=== PATIENT | female | born 1985 | race Caucasian/White ===

== ENCOUNTER 2021-11-06 18:47 | Inpatient (IN) | payer BC, SELFPAY ==
[2021-11-06] VITALS (11 sets, daily range): BP systolic 111–132; BP diastolic 71–85; PULSE 89–97; BMI 38.5
--- OUTSIDE RECORDS SUMMARY | 2021-11-06 18:54 | XMS_ITS | Encounter Summary ---
:1985 Author Care Team Providers Name Role Phone Adams Luna Primary Care Provider [phone] Reason for Visit OB visit Assessment and Plan 1. Elderly primigravida 2. -induced hypertensio n Discussion Note: None recorded.Patient educational handouts: No information available. Plan of Care Reminders Provider Appointments Nst Nst, , EQ UIP 11/13/2021 3:30PM ? U/S OB BPP Ultras ound, TECH 11/13/2021 4:00PM ? Ob Routine Lucila Th erese 11/13/2021 MD Louis 5:15PM Lab None ? ? recorded. Referral None ? ? recorded. Procedures None ? ? recorded. Surgeries None ? ? recorded. Imaging None ? ? recorded. Medications Name Start Date ? ? cephalexin 500 mg capsule ? Take 1 capsule 3 times a day by oral route for 7 days . omeprazole 40 mg capsule,delayed release ? Take 1 capsule every day by oral route. ondansetron 4 mg disintegrating tablet ? Place 1 tablet twice a day by translingual route as n eeded. ? Medications Administered None recorded. Vitals Height
--- OUTSIDE RECORDS SUMMARY | 2021-11-06 18:54 | XMS_ITS | Encounter Summary ---
:1985 Author Care Team Providers Name Role Phone Adams Luna Primary Care Provider [phone] Reason for Visit NST [id number] EDC 11/09/2021 LMP 02/02/2021 Assessment and Plan 1. Maternal obesity complicating , childbirth and the puerperium, antepartum ? non-stress test Discussion Note: None recorded.Patient educational handouts: No information available. Plan of Care Reminders Provider Appointments Nst Nst, , EQ UIP 11/13/2021 3:30PM ? U/S OB BPP Ultras ound, TECH 11/13/2021 4:00PM ? Ob Routine Lucila Th erese 11/13/2021 MD Louis 5:15PM Lab None ? ? recorded. Referral None ? ? recorded. Procedures None ? ? recorded. Surgeries None ? ? recorded. Imaging Non-stress [place] Test 10/30/2021 Medications Name Start Date ? ? cephalexin 500 mg capsule ? Take 1 capsule 3 times a day by oral route for 7 days . omeprazole 40 mg capsule,delayed release ? Take 1 capsule every day by oral route. ondansetron 4 mg disintegrating tablet ? Place 1 tablet twice a day b
--- OUTSIDE RECORDS SUMMARY | 2021-11-06 18:54 | XMS_ITS | Encounter Summary ---
:1985 Author Care Team Providers Name Role Phone Adams Luna Primary Care Provider [phone] Reason for Visit None recorded. Assessment and Plan 1. Maternal obesity complicating , childbirth and the puerperium, antepartum ? US, obstetric, biophysical profile + non-stress test Discussion Note: None recorded.Patient educational handouts: No information available. Plan of Care Reminders Provider Appointments Nst Nst, , EQ UIP 11/13/2021 3:30PM ? U/S OB BPP Ultras ound, TECH 11/13/2021 4:00PM ? Ob Routine Lucila Th erese 11/13/2021 MD Louis 5:15PM Lab None recorded. ? ? Referral None recorded. ? ? Procedures None recorded. ? ? Surgeries None recorded. ? ? Imaging US, Obstetric, [facility] Biophysical Profile + 11/06/2021 Non-stress Test Medications Name Start Date ? ? cephalexin 500 mg capsule ? Take 1 capsule 3 times a day by oral route for 7 days . omeprazole 40 mg capsule,delayed release ? Take 1 capsule every day by oral route. ondansetron 4 mg disintegrating tablet ?
--- OUTSIDE RECORDS SUMMARY | 2021-11-06 18:54 | XMS_ITS ---
:1985 Author Care Team Providers Name Role Phone FLOYD CADE Primary Care Provider [phone] Allergies Code Code System Name Reaction Severity Status Onset NKDA ? Medications Name Status Start Date Stop Date ? ? amitriptyline 25 mg tablet Completed 06/05/201706/05 take 1 tablet by oral route every day at bedtime amitriptyline 50 mg tablet Completed 06/05/201703/16 take 1 tablet by oral route every day at bedtime cephalexin 500 mg capsule Active ? Not av ailable Diflucan 150 mg tablet Completed 12/16/2015 take 1 tablet by oral route once erythromycin with ethanol 2 % topical solution Completed 0 05/20/2014 06/05/2017 apply by topical route 2 times every da y a thin layer to the affected area(s) in the morning and evening Lysteda 650 mg tablet Completed 12/05/2015 06/05/2017 take 2 tablet by oral route 3 times every day during menses Vandazole 0.75 % vaginal gel Active ? Not available omeprazole Completed ? 05/08/2021 omeprazole 40 mg Active ? Not available capsule,delayed release ondansetron 4 mg Active ? Not available disintegrating tablet ParaGard T 380A 380 square mm Active 03/16/2019 No t available intrauterine device Active ? Not available Tri-Sprintec (28) 0.18 mg(7)/0.215 mg(7)/0.25 mg(7)-35 mcg table t Completed ? 03/28/2021 TAKE 1 TABLET BY MOUTH EVERY DAY Problems Name Status Onset Date Source ?
--- OUTSIDE RECORDS SUMMARY | 2021-11-06 18:54 | XMS_ITS | Encounter Summary ---
:1985 Author Care Team Providers Name Role Phone Adams Luna Primary Care Provider [phone] Reason for Visit OB visit Assessment and Plan 1. Elderly primigravida 2. Maternal obesity complicating , childbirth and the puerperium, antepartum Discussion Note: None recorded.Patient educational handouts: No [...] by translingual route as n eeded. ? Med
--- OUTSIDE RECORDS SUMMARY | 2021-11-06 18:54 | XMS_ITS | Encounter Summary ---
:1985 Author Care Team Providers Name Role Phone Adams Luna Primary Care Provider [phone] Reason for Visit None recorded. Assessment and Plan 1. Maternal obesity complicating , childbirth and the puerperium, antepartum ? US, obstetric, follow-up Discussion Note: None recorded.Patient educational handouts: No information available. Plan of Care Reminders Provider Appointments Nst Nst, , EQ UIP 11/13/2021 3:30PM ? U/S OB BPP Ultras ound, TECH 11/13/2021 4:00PM ? Ob Routine Ulcila Th erese 11/13/2021 MD Louis 5:15PM Lab None ? ? recorded. Referral None ? ? recorded. Procedures None ? ? recorded. Surgeries None ? ? recorded. Imaging , [place] Obstetric, Follow-up 10/23/2021 Medications Name Start Date ? ? cephalexin 500 mg capsule ? Take 1 capsule 3 times a day by oral route for 7 days . omeprazole 40 mg capsule,delayed release ? Take 1 capsule every day by oral route. ondansetron 4 mg disintegrating tablet ? Place 1 tablet twice a day by translingual rout
--- OUTSIDE RECORDS SUMMARY | 2021-11-06 18:54 | XMS_ITS | Encounter Summary ---
:1985 Author Care Team Providers Name Role Phone Adams Luna Primary Care Provider [phone] Reason for Visit OB visit Assessment and Plan 1. Elderly primigravida 2. Maternal obesity complicating , childbirth and the puerperium, antepartum Discussion Note: None recorded.Patient educational handouts: No information available. Plan of Care Reminders Provider Appointments Nst Nst, , EQ UIP 11/13/2021 3:30PM ? U/S OB BPP Ultras ound TECH 11/13/2021 4:00PM ? Ob Routine Lucila [...]
--- OUTSIDE RECORDS SUMMARY | 2021-11-06 18:54 | XMS_ITS | Encounter Summary ---
:1985 Author Care Team Providers Name Role Phone Adams Luna Primary Care Provider [phone] Reason for Visit OB visit Assessment and Plan 1. Elderly primigravida 2. Maternal obesity complicating , childbirth and the puerperium, antepartum 3. Elevated blood-pressure readi ng without diagnosis of hypertension Discussion Note: None recorded.Patient educational handouts: No information available. Plan of Care Reminders Provider Appointments Nst Nst, , EQ UIP 11/13/2021 3:30PM ? U/S OB BPP Ultras ound, TECH 11/13/2021 4:00PM ? Ob Routine Lucila Gen osacr 11/13/2021 MD Louis 5:15PM Lab None ? [...] mg disintegrating tablet ? Place 1 tablet t
--- OUTSIDE RECORDS SUMMARY | 2021-11-06 18:54 | XMS_ITS | Encounter Summary ---
:1985 Author Care Team Providers Name Role Phone Adams Luna Primary Care Provider [phone] Reason for Visit OB visit Assessment and Plan 1. Routine care 2. Elderly primigravida 3. Maternal obesity complicating , childbirth and the [...]
--- OUTSIDE RECORDS SUMMARY | 2021-11-06 18:54 | XMS_ITS | Encounter Summary ---
:1985 Author Care Team Providers Name Role Phone Adams Luna Primary Care Provider [phone] Reason for Visit OB visit Assessment and [...]
--- OUTSIDE RECORDS SUMMARY | 2021-11-06 18:54 | XMS_ITS | Encounter Summary ---
:1985 Author Care Team Providers Name Role Phone Adams Luna Primary Care Provider [phone] Reason for Visit None recorded. Assessment and [...] None recorded. ? ? Imaging US, Obstetric, [facility] Biophysical Profile + 10/30/2021 Non-stress Test Medications Name Start Date ? ? cephalexin 500 mg capsule ? Take 1 capsule 3 times a day by oral route for 7 days . omeprazole 40 mg capsule,delayed release ? Take 1 capsule every day by oral route. ondansetron 4 mg disintegrating tablet ?
--- OUTSIDE RECORDS SUMMARY | 2021-11-06 18:54 | XMS_ITS | Encounter Summary ---
:1985 Author Care Team Providers Name Role Phone Adams Luna Primary Care Provider [phone] Reason for Visit None recorded. Assessment and [...] ? recorded. Imaging Non-stress [place] Test 10/23/2021 Medications Name Start Date ? ? cephalexin 500 mg capsule ? Take 1 capsule 3 times a day by oral route for 7 days . omeprazole 40 mg capsule,delayed release ? Take 1 capsule every day by oral route. ondansetron 4 mg disintegrating tablet ? Place 1 tablet twice a day by translingual route as
--- OUTSIDE RECORDS SUMMARY | 2021-11-06 18:54 | XMS_ITS | Encounter Summary ---
:1985 Author Care Team Providers Name Role Phone Adams Luna Primary Care Provider [phone] Reason for Visit NST [id number] EDC 11/09/2021 LMP 02/02/2021 Assessment and Plan [...] ? recorded. Imaging Non-stress [place] Test 11/06/2021 Medications Name Start Date ? ? cephalexin 500 mg capsule ? Take 1 capsule 3 times a day by oral route for 7 days . omeprazole 40 mg capsule,delayed release ? Take 1 capsule every day by oral route. ondansetron 4 mg disintegrating tablet ? Place 1 tablet twice a day
--- OUTSIDE RECORDS SUMMARY | 2021-11-06 18:55 | XMS_ITS | Encounter Summary ---
:1985 Author Care Team Providers Name Role Phone Adams Luna Primary Care Provider [phone] Reason for Visit None recorded. Assessment and Plan 1. screening ? US, obstetric, follow-up Discussion Note: None [...] recorded. Surgeries None ? ? recorded. Imaging [facility] Obstetric, Follow-up 08/22/2021 Medications Name Start Date ? ? cephalexin 500 mg capsule ? Take 1 capsule 3 times a day by oral route for 7 days . omeprazole 40 mg capsule,delayed release ? Take 1 capsule every day by oral route. ondansetron 4 mg disintegrating tablet ? Place 1 tablet twice a day by translingual route as n eeded. ? Medications Administere
--- OUTSIDE RECORDS SUMMARY | 2021-11-06 18:55 | XMS_ITS | Encounter Summary ---
:1985 Author Care Team Providers Name Role Phone Adams Luna Primary Care Provider [phone] Reason for Visit OB visit Assessment and [...]
[2021-11-06] MEDS: DINOPROSTONE 10 MG VAG INSERT VAGINAL (19:33)
[2021-11-06 19:35] LABS: Basophils Absolute Auto 0.1 K/mm3 (0.0-0.1); Basophils Percent Auto 0.3 % (0.2-1.2); Eosinophils Absolute Auto 0.1 K/mm3 (0-0.3); Eosinophils Percent Auto 0.5 % (0-4.4); Hematocrit 35.9 % (37.0-47.0); Hemoglobin 11.8 g/dL (12.0-15.0); Immature Granulocyte Absolute 0.09 K/mm3 (0.00-0.031); Immature Granulocyte Percent A 0.6 % (0-0.5); Lymphocytes Absolute Auto 3.08 K/mm3 (0.9-3.2); Lymphocytes Percent Auto 20.3 % (18.3-44.2); Mean Corpuscular HGB Conc 32.9 g/dl (32-36); Mean Corpuscular Hemoglobin 28.4 pg (26-34); Mean Corpuscular Volume 86.3 fl (80-100); Mean Platelet Volume 9.8 fl (7.4-10.4); Monocytes Percent Auto 6.7 % (2.6-8.5); Neutrophils Absolute Auto 10.8 K/mm3 (1.3-6.7); Neutrophils Percent Auto 71.6 % (45.5-73.1); Platelet Count Result 230 k/mm3 (150-375); Red Blood Count 4.16 M/mm3 (4.2-5.4); Red Cell Distribution Width 13.6 % (11.5-14.5); White Blood Count 15.2 K/mm3 (4.5-10.0)
--- NOTE | 2021-11-06 19:39 | LDADM ---
This patient, Lois Hughes, was admitted to Labor/Delivery/Recovery 109 on 11/06/21 at 18:47. Plans for labor, pain management and were discussed with patient. Patient/family oriented to hospital policies and general routines including ID bracelet, bed and alarms, visiting hours, pain management, procedures, bathroom and other care routines, personal items, smoking policy, room service/diet and guest tray routines, security routines, and visiting hours. Patient/Family are encouraged to report perceived risks to care and to ask questions if they do not understand what they are told or what they should do. See OBIX for further documentation.
[2021-11-06 19:47] LABS: Uric Acid 4.3 mg/dL (2.5-7.5)
[2021-11-06 19:48] LABS: Alanine Aminotransferase 16 U/L (4-35); Albumin Level 3.6 g/dL (3.5-5.1); Alkaline Phosphatase 157 U/L (38-126); Anion Gap 7 mmol/L (8-16); Aspartate Amino Transferase 24 U/L (14-36); Bilirubin,Total 0.4 mg/dL (0.2-1.3); Blood Urea Nitrogen 7 mg/dL (7-17); Calcium 8.7 mg/dL (8.4-10.2); Carbon Dioxide 21 mmol/L (22-30); Chloride 104 mmol/L (98-107); Estimated CRCL calculation 148 ml/min; Estimated Glomerular Filt Rate > 60; Glucose 93 mg/dL (65-110); Potassium 3.7 mmol/L (3.4-5.0); Sodium 132 mmol/L (137-145)
--- NOTE | 2021-11-06 20:33 | WPDANESEPP ---
Anes - Eval Pre Procedure Procedure: labor epidural Date/Time: 11/06/21 20:33 Surgeon: christel Pre Op Diagnosis: IOL Patient Data Age: 36 Gender: F Height: 1.73 m Weight: 114.8 kg Last Vital Signs Pulse 92 11/06/21 20:31 BP 122/74 11/06/21 20:31 Allergies Allergy/AdvReac Type Severity Reaction Status Date / Time No Known Allergies Allergy Uncoded 06/05/19 06:58 Home Medications Medication Instructions Recorded Confirmed Type esomeprazole magnesium 40 mg 40 mg PO DAILY #30 cap 11/14/20 10/28/21 Rx capsule,delayed release PNV cmb#95-ferrous fumarate-FA 1 tablet PO DAILY 10/28/21 10/28/21 History [] omeprazole 40 mg PO DAILY 11/06/21 11/06/21 History Laboratory Tests 11/06/21 11/06/21 11/06/21 19:16 19:16 19:16 WBC RBC Hgb Hct MCV MCH MCHC RDW Plt Count MPV Immature Gran % (Auto) Neut % (Auto) Lymph % (Auto) [place] % (Auto) Eos % (Auto) Baso % (Auto) Lymph # (Auto) [place] # (Auto) Eos # (Auto) Baso # (Auto) Abs Immat Gran (auto) Absolute Neuts (auto) Absolute Nucleated RBC Nucleated RBC % Sodium 132 mmol/L L mmol/L (137-145) Potassium 3.7 mmol/L mmol/L (3.4-5.0) Chloride 104 mmol/L mmol/L (98-107) Carbon Dioxide 21 mmol/L L mmol/L (22-30) Anion Gap 7 mmol/L L mmol/L (8-16) BUN 7 mg/dL mg/dL (7-17) Creatinine 0.60 mg/dL L mg/dL (0.7-1.0) Estim Creat Clear Calc 148 ml/min ml/min Estimated GFR > 60 (59 - ) Glucose 93 mg/dL mg/dL (65-110) Uric Acid 4.3 mg/dL mg/dL (2.5-7.5) Calcium 8.7 mg/dL mg/dL (8.4-10.2) Total Bilirubin 0.4 mg/dL mg/dL (0.2-1.3) AST 24 U/L U/L (14-36) ALT 16 U/L U/L (4-35) Alkaline Phosphatase 157 U/L H U/L (38-126) Total Protein 7.0 g/dL g/dL (6.3-8.2) Albumin 3.6 g/dL g/dL (3.5-5.1) RPR Pending 11/06/21 19:17 WBC 15.2 K/mm3 H K/mm3 (4.5-10.0) RBC 4.16 M/mm3 L M/mm3 (4.2-5.4) Hgb 11.8 g/dL L g/dL (12.0-15.0) Hct 35.9 % L % (37.0-47.0) MCV 86.3 fl fl (80-100) MCH 28.4 pg pg (26-34) MCHC 32.9 g/dl g/dl (32-36) RDW 13.6 % % (11.5-14.5) Plt Count 230 k/mm3 k/mm3 (150-375) MPV 9.8 fl fl (7.4-10.4) Immature Gran % (Auto) 0.6 % H % (0-0.5) Neut % (Auto) 71.6 % % (45.5-73.1) Lymph % (Auto) 20.3 % % (18.3-44.2) [place] % (Auto) 6.7 % % (2.6-8.5) Eos % (Auto) 0.5 % % (0-4.4) Baso % (Auto) 0.3 % % (0.2-1.2) Lymph # (Auto) 3.08 K/mm3 K/mm3 (0.9-3.2) [place] # (Auto) 1.0 K/mm3 H K/mm3 (0.1-0.6) Eos # (Auto) 0.1 K/mm3 K/mm3 (0-0.3) Baso # (Auto) 0.1 K/mm3 K/mm3 (0.0-0.1) Abs Immat Gran (auto) 0.09 K/mm3 H K/mm3 (0.00-0.031) Absolute Neuts (auto) 10.8 K/mm3 H K/mm3 (1.3-6.7) Absolute Nucleated RBC 0.0 K/mm3 K/mm3 (0.0-0.012) Nucleated RBC % 0.0 % % (0.0-0.2) Sodium Potassium Chloride Carbon Dioxide Anion Gap BUN Creatinine Estim Creat Clear Calc Estimated GFR Glucose Uric Acid Calcium Total Bilirubin AST ALT Alkaline Phosphatase Total Protein Albumin RPR Patient hx anesthesia problems: none Family hx anesthesia problems: none Results Review: All pre-operative results and documents have been reviewed as part of the pre-operative evaluation. [facility] Family History Family History (Updated 10/28/21 @ 13:27 by Tico Harmon RN) Father Hypertension Mother Hypertension Social History Soc
[2021-11-07] VITALS (26 sets, daily range): BP systolic 97–133; BP diastolic 42–89; PULSE 70–94; TEMP 36.6–36.8
--- NOTE | 2021-11-07 07:41 | PM.IMHP ---
H&P: HPI History of Present Illness Date/Time: 11/07/21 07:41 Chief Complaint: induction of labor Narrative: Lois is a 36yo G1 at 39.5 for induction of labor for PIH. BPs in office 140s/80s-90s yesterday. Cervidil overnight. otherwise uncomplicated except for obesity. Review of Systems Review of Systems: All systems reviewed & are unremarkable except as noted in HPI and below PMFSH Family History Family History (Updated 10/28/21 @ 13:27 by Tico Harmon RN) Father Hypertension Mother Hypertension Social History Social History Smoking status: Never smoker Second hand tobacco smoke exposure: No Substance use: never Spiritual care concerns: No Meds Home Medications and Allergies Home Medications Medication Instructions Recorded Confirmed Type esomeprazole magnesium 40 mg 40 mg PO DAILY #30 cap 11/14/20 10/28/21 Rx capsule,delayed release PNV cmb#95-ferrous fumarate-FA 1 tablet PO DAILY 10/28/21 10/28/21 History [] omeprazole 40 mg PO DAILY 11/06/21 11/06/21 History Allergies Allergy/AdvReac Type Severity Reaction Status Date / Time No Known Allergies Allergy Uncoded 06/05/19 06:58 Vital Signs Vital Signs - 24 hr 11/06/21 19:31 11/06/21 19:32 11/06/21 19:46 Pulse Rate 93 97 90 Blood Pressure 112/82 115/75 117/85 11/06/21 20:01 11/06/21 20:03 11/06/21 20:16 Pulse Rate 92 92 93 Blood Pressure 125/78 125/78 117/81 11/06/21 20:31 11/06/21 20:46 11/06/21 21:01 Pulse Rate 92 89 96 Blood Pressure 122/74 122/77 111/71 11/06/21 21:16 11/06/21 21:38 11/07/21 01:31 Pulse Rate 92 92 93 Blood Pressure 132/80 120/79 124/67 11/07/21 01:33 11/07/21 02:02 11/07/21 02:32 Pulse Rate 88 85 78 Blood Pressure 117/76 110/50 L 106/51 L 11/07/21 03:01 11/07/21 03:32 11/07/21 04:33 Pulse Rate 87 81 78 Blood Pressure 99/55 L 102/50 L 98/53 L 11/07/21 05:01 11/07/21 05:31 11/07/21 06:01 Pulse Rate 72 82 83 Blood Pressure 109/65 103/68 100/65 11/07/21 06:32 Pulse Rate 78 Blood Pressure 97/42 L Exam Const: General: no acute distress Resp: Effort & Inspection: normal respiratory effort Auscultation: clear to auscultation bilaterally Cardio: Rate: regular rate Rhythm: regular rhythm GI: GI Palp: Yes Soft to palpation Extrem: General: normal to inspection H&P: Results Labs Labs: Short CBC 11/06/21 Range/Units 19:17 WBC 15.2 H (4.5-10.0) K/mm3 Hgb 11.8 L (12.0-15.0) g/dL Hct 35.9 L (37.0-47.0) % Plt Count 230 (150-375) k/mm3 BMP 11/06/21 19:16 Sodium 132 L Potassium 3.7 Chloride 104 Carbon Dioxide 21 L BUN 7 Creatinine 0.60 L Glucose 93 Calcium 8.7 Liver Function 11/06/21 Range/Units 19:16 Total Bilirubin 0.4 (0.2-1.3) mg/dL AST 24 (14-36) U/L ALT 16 (4-35) U/L Alkaline Phosphatase 157 H (38-126) U/L Albumin 3.6 (3.5-5.1) g/dL Assessment and Plan Additional Plan Here for induction of labor-s/p cervidil. GBS neg wants tubal if has CS FHT category 1 0/50/-[address] another cervidil after shower and breakfast.
[2021-11-07 09:21] LABS: Rapid Plasma Reagin Non-Reactive (NonReactive)
[2021-11-07] MEDS: DINOPROSTONE 10 MG VAG INSERT VAGINAL (09:34)
[2021-11-07] MEDS: FAMOTIDINE 20 MG TABLET PO (12:09)
[2021-11-07] MEDS: LACTATED RINGERS 1,000 ML 125 ML IV CONT (21:35)
[2021-11-07] MEDS: OXYTOCIN 30 UNITS/NS 500 ML 30 UNITS/500 ML BAG 6 UNITS IV CONT (22:02)
[2021-11-08] VITALS (54 sets, daily range): BP systolic 91–122; BP diastolic 47–83; PULSE 58–91; RESP 16–18; TEMP 36.2–36.7; O2SAT 93–100
[2021-11-08] MEDS: FAMOTIDINE 20 MG TABLET PO ×2 (00:26→17:28)
--- NOTE | 2021-11-08 07:31 | WPDHPUPDATE1 ---
History and Physical Update Update Date/Time: 11/08/21 07:31 History and Physical has been reviewed, including an updated exam of the patient. Now s/p cervidil x2 and pitocin for 10 hours. BPs great, FHT category 1. Discussed going home with failed induction to await labor or 41 weeks, but pt prefers to have CS. She plans no more pregnancies, in fact wants salpingectomy. I think this is a reasonable course, as she is 40w, did have elevated BPs, and she is aware of the risks of CS. She does have mesh from inguinal hernia repair. We discussed RBA and she is consented. Risks, benefits, and alternatives have been discussed and questions answered. Patient agrees to proceed with procedure.
--- NOTE | 2021-11-08 08:21 | WPDANESEPPF ---
Anes - Initial Pre Proc Eval Procedure: Operation Date: 11/08/21 09:00 Proposed Procedures p Section - Lucila Myers MD Date/Time: 11/08/21 08:21 Surgeon: Lucila Myers MD Pre Op Diagnosis: IOL Patient Data Age: 36 Gender: F Height: 1.73 m Weight: 114.8 kg Last Vital Signs Temp 36.8 C 11/07/21 18:30 Pulse 84 11/08/21 07:31 BP 122/83 11/08/21 07:31 Allergies Allergy/AdvReac Type Severity Reaction Status Date / Time No Known Allergies Allergy Uncoded 06/05/19 06:58 Home Medications Medication Instructions Recorded Confirmed Type esomeprazole magnesium 40 mg 40 mg PO DAILY #30 cap 11/14/20 10/28/21 Rx capsule,delayed release PNV cmb#95-ferrous fumarate-FA 1 tablet PO DAILY 10/28/21 10/28/21 History [] omeprazole 40 mg PO DAILY 11/06/21 11/06/21 History Laboratory Tests 11/06/21 19:16 RPR Non-reactive (NonReactive) Patient hx anesthesia problems: none Family hx anesthesia problems: none Results Review: All pre-operative results and documents have been reviewed as part of the pre-operative evaluation. [facility] Past Medical History Medical History GERD (gastroesophageal reflux disease) Family History Family History Father Hypertension Mother Hypertension Social History Social History Smoking status: Never smoker Second hand tobacco smoke exposure: No Substance use: never Spiritual care concerns: No Anes - Eval Final PreProcedure Day of Procedure 11/08/21 08:21 Patient weight: obese Heart: regular rate and rhythm Lungs: clear to auscultation Airway: Mallampati scale class II Neurological: alert and oriented Last oral intake: >/= 8 hours ASA classification: II Emergent: no Anesthetic plan: proceed Anesthesia type and monitoring: regional spinal and standard monitoring Results Review: All pre-operative results and documents have been reviewed as part of the pre-operative evaluation. Informed Consent: The patient's anesthetic plan and its attendant risks and benefits were discussed with the patient/family/POA. Questions were solicited and answers provided to the satisfaction of the patient/family/POA.
[2021-11-08] MEDS: LACTATED RINGERS 1,000 ML 125 ML IV CONT (08:24)
[2021-11-08] MEDS: ceFAZolin 2 GM/D5W 50 ML 2 GM/50 ML BAG IVPB (08:54)
--- NOTE | 2021-11-08 09:51 | PM.OBPRVD ---
OB - Delivery Note Procedure Delivery date: 11/08/21 Procedure: Procedures Operation Date: 11/08/21 09:00 <No data on this case meets the specified criteria> Primary low transverse section Intrapartal Events: Failed Induction of Labor Induction method: Per Pitocin Protocol and Per Cervidil Protocol Delivery monitor: External FHT and External Uterine Route of delivery: Prior to decision for section, ACOG/SMFM labor guidelines were considered and discussed with the patient and staff. Decision made to proceed with the section.: Yes Specimen: Yes (placenta) Quantitative Blood Loss (ml): 505 Anesthesia type: Spinal Disposition: floor Complications: none Narrative: The patient was taken to the OR and received spinal anesthesia. She was placed in dorsal supine position with left lateral tilt. SCDs and tompkins were placed. She was prepped and draped in the normal sterile fashion. A Pfannensteil skin incision was made and carried through to the underlying layer of fascia. The fascia was incised in the midline and then extended laterally using Berkowitz scissors. The muscles were in the midline and the peritoneum was entered bluntly. The peritoneal incision was extended inferiorly and superiorly with care to avoid the bladder. The bladder blade was then inserted, the vesicouterine peritoneum was grasped, incised with Metzenbaum scissors, and a bladder flap created. The bladder blade was reinserted. A low transverse uterine incision was made with a scalpel and extended bluntly. AROM was performed and fluid was noted to be clear. The head was delivered, followed by the remainder of the baby. The baby's oropharynx was suctioned. After 30 seconds, the cord was clamped and cut and the infant was handed off. Cord blood was obtained and the placenta was then removed manually. The uterus was exteriorized. A moist lap sponge was used to curette the endometrium. The uterine incision was then closed with one layer of 0-Vicryl in a running, locking fashion. Good hemostasis was noted. The posterior cul de sac was irrigated with normal saline and cleared of all clot and debris. The uterus was returned to the abdomen. Both lateral gutters were then irrigated. The rectus muscles were inspected and found to be hemostatic. The fascia was reapproximated using 0-Vicryl in running fashion. The subcutaneous tissue was irrigated with normal saline and made hemostatic with Bovie electrocautery. The subcutaneous tissue was reapproximated with a layer of running 2-0 plain gut. The skin was then closed with absorbable shai. Steri strips and a bandage were applied. The uterus was evacuated. The patient tolerated the procedure very well. All counts were correct. She was taken to the recovery room in good condition. [place] Baby Date of : 11/08/21 Time of : 09:20 Weeks of gestation at delivery: 40 gender: Female Weight (pounds): 7 Weight (ounces): 11 presentation: vertex Placenta delivery description: Manual Removal Cord Vessel Description: 3 Vessels and Delayed Cord Clamping score one minute: 9 score five minutes: 9
[2021-11-08] MEDS: OXYTOCIN 30 UNITS/NS 500 ML 30 UNITS/500 ML BAG 125 UNITS IV CONT (10:35)
--- NOTE | 2021-11-08 12:10 | OBPPTRN ---
Patient transferred to post room # 277 via stretcher. Support person present. Oriented to unit, room, information board, rooming in, admission packet and security measures. Patient verbalizes understanding. PT introductions made and plan of care discussed per post op c section, pain management, breast feeding, daily care activities. PT and spouse both recipients of such instructions this shift. no barriers to learning identified. PT received instructions via one to one discussion, mom baby care guide and demonstrations. Pt verbalized understanding of such care.
[2021-11-08] MEDS: KETOROLAC 30 MG/ML VIAL (*BKC) IV PUSH ×2 (14:48→20:29)
[2021-11-08] MEDS: DEXTROSE 5%/0.45% SOD CHL 1,000 ML 125 ML IV CONT (14:48)
[2021-11-08] MEDS: ACETAMINOPHEN 325 MG TABLET 650 MG PO (14:49)
[2021-11-08] MEDS: LANOLIN (LANSINOH) 7.5 GM CREAM 1 APPLIC TOPICAL (14:50)
[2021-11-08] MEDS: SIMETHICONE 80 MG TAB.CHEW PO ×2 (14:50→17:27)
[2021-11-08] MEDS: DOCUSATE SODIUM 100 MG CAPSULE PO (17:27)
[2021-11-09] VITALS: BP 97/57; PULSE 76; RESP 16; TEMP 36.5; O2SAT 98
[2021-11-09] MEDS: ACETAMINOPHEN 325 MG TABLET 650 MG PO ×3 (00:16→17:26)
[2021-11-09 04:51] VITALS: BP 92/55; PULSE 82; RESP 16; TEMP 36.6; O2SAT 98
[2021-11-09 04:53] VITALS: PULSE 82; RESP 16; O2SAT 98
[2021-11-09] MEDS: HYDROcodone/acetaminophen (*CRX) 5-325 MG TABLET 1 TAB PO (05:00)
[2021-11-09 06:12] LABS: Basophils Percent Auto 0.2 % (0.2-1.2); Eosinophils Absolute Auto 0.1 K/mm3 (0-0.3); Eosinophils Percent Auto 0.3 % (0-4.4); Hematocrit 27.9 % (37.0-47.0); Hemoglobin 9.2 g/dL (12.0-15.0); Immature Granulocyte Absolute 0.11 K/mm3 (0.00-0.031); Immature Granulocyte Percent A 0.7 % (0-0.5); Lymphocytes Absolute Auto 2.75 K/mm3 (0.9-3.2); Lymphocytes Percent Auto 16.6 % (18.3-44.2); Mean Corpuscular Hemoglobin 28.5 pg (26-34); Mean Corpuscular Volume 86.4 fl (80-100); Mean Platelet Volume 10.5 fl (7.4-10.4); Monocytes Absolute Auto 1.3 K/mm3 (0.1-0.6); Neutrophils Absolute Auto 12.3 K/mm3 (1.3-6.7); Neutrophils Percent Auto 74.2 % (45.5-73.1); Platelet Count Result 207 k/mm3 (150-375); Red Blood Count 3.23 M/mm3 (4.2-5.4); Red Cell Distribution Width 13.7 % (11.5-14.5); White Blood Count 16.6 K/mm3 (4.5-10.0)
[2021-11-09 07:00] VITALS: BP 103/61; PULSE 74; RESP 18; TEMP 36.3; O2SAT 98
--- NOTE | 2021-11-09 07:00 | PC.NURSE ---
PT introductions made and plan of care discussed per post op c section, pain management, breast feeding, daily care activities. PT and spouse both recipients of such instructions this shift. no barriers to learning identified. PT received instructions via one to one discussion, mom baby care guide and demonstrations. Pt verbalized understanding of such care.
--- NOTE | 2021-11-09 07:52 | PM.OBPNVD ---
OB - PN: Subj Subjective Date/time seen: 11/09/21 07:52 Patient comments: no complaints, pain well controlled, tolerating diet and flatus present [place] baby status: doing well OB - PN: Obj Data Labs CBC & Chem 7: 11/09/21 04:31 11/06/21 19:16 Labs: Laboratory Results - last 24 hr 11/09/21 04:31 WBC 16.6 H RBC 3.23 L Hgb 9.2 L Hct 27.9 L MCV 86.4 MCH 28.5 MCHC 33.0 RDW 13.7 Plt Count 207 MPV 10.5 H Immature Gran % (Auto) 0.7 H Neut % (Auto) 74.2 H Lymph % (Auto) 16.6 L [place] % (Auto) 8.0 Eos % (Auto) 0.3 Baso % (Auto) 0.2 Lymph # (Auto) 2.75 [place] # (Auto) 1.3 H Eos # (Auto) 0.1 Baso # (Auto) 0.0 Abs Immat Gran (auto) 0.11 H Absolute Neuts (auto) 12.3 H Absolute Nucleated RBC 0.0 Nucleated RBC % 0.0 OB - PN A/P Plan day: 1 Plan: routine care Time Spent With Patient Time: Total time spent is greater than 50% in coordination of care (as documented) at patient's floor/unit and/or counseling patient: Time with patient: less than 15 minutes Review of Systems Review of Systems: All systems reviewed & are unremarkable except as noted in HPI and below Exam Narrative: Fundus firm. Vaginal flow controlled. Incision dry and intact. Negative homans. No redness, warmth, or pain of lower ext. Const: General: comfortable Chest: Breast/axilla inspection: normal inspection of the breasts Resp: Effort & Inspection: normal respiratory effort Auscultation: clear to auscultation bilaterally Cardio: Rate: regular rate GI: GI Palp: Yes Soft to palpation Psych: Appearance: grossly normal Affect: normal affect Attitude: cooperative Thought content: Yes Normal thought content present Judgement: Good judgement present (Psych)
[2021-11-09] MEDS: KETOROLAC 30 MG/ML VIAL (*BKC) IV PUSH (09:09)
[2021-11-09] MEDS: MULTIVIT/MIN/PREN/FOL AC/IRON TABLET 1 TAB PO (09:10)
[2021-11-09] MEDS: POLYSACCHARIDE IRON COMPLEX 150 MG CAPSULE PO ×2 (09:10→17:26)
[2021-11-09] MEDS: DOCUSATE SODIUM 100 MG CAPSULE PO ×2 (09:10→17:26)
[2021-11-09] MEDS: SIMETHICONE 80 MG TAB.CHEW PO ×2 (09:10→17:25)
[2021-11-09 09:11] VITALS: PULSE 74; RESP 18; O2SAT 98
--- NOTE | 2021-11-09 11:23 | WPDANLDNPN2 ---
Anes-Prog Note L&D-Neuraxial Date/Time: 11/09/21 11:23 Neuraxial medications: intrathecal PF morphine Opiod-related complaints: none Patient feedback: Patient satisfied with post-operative pain management.
--- NOTE | 2021-11-09 11:23 | WPDANLDPN2 ---
Anes-Prog Note L&D Date/Time: 11/09/21 11:23 Comfortable throughout: section Neuraxial method: spinal Epidural/Spinal procedure site: clean & non-tender Neuro status: Neuro function grossly intact. Cardiovascular status: normal Respiratory status: normal Airway patency: baseline Mental status: baseline Post-Op hydration status: normal Vital Signs: Last Vital Signs Temp 36.3 C L 11/09/21 07:00 Pulse 74 11/09/21 07:00 Resp 18 11/09/21 07:00 BP 103/61 11/09/21 07:00 Pulse Ox 98 11/09/21 07:00 Pain score (VAS): 0 I/O: Intake & Output 11/08/21 11/09/21 11/09/21 23:59 07:59 15:59 Intake Total 1080 500 Output Total 1775 1000 Balance -695 -500 Post-procedural complaints: none Patient feedback: Patient satisfied with anesthetic care.
[2021-11-09] MEDS: NAPROXEN 500 MG TABLET PO (17:27)
[2021-11-09 20:27] VITALS: BP 110/67; PULSE 80; RESP 18; TEMP 36.4; O2SAT 98
[2021-11-10] MEDS: HYDROcodone/acetaminophen (*CRX) 5-325 MG TABLET 1 TAB PO ×2 (04:22→08:10)
[2021-11-10 07:30] VITALS: BP 122/75; PULSE 72; RESP 16; TEMP 37.2; O2SAT 97
--- NOTE | 2021-11-10 07:45 | PM.OBPNVD ---
OB - PN: Subj Subjective Date/time seen: 11/10/21 07:45 Patient comments: no complaints and pain well controlled baby status: doing well and nursing well [place] feeding status: exclusively breast feeding Narrative: would like DC home today. Passing flatus. OB - PN: Obj Data Labs CBC & Chem 7: 11/09/21 04:31 11/06/21 19:16 OB - PN A/P Assessment and Plan (1) delivery delivered: Code(s): O82 - Encounter for delivery without indication Status: Acute Plan day: 2 Plan: routine care and discharge home Time Spent With Patient Time: Total time spent is greater than 50% in coordination of care (as documented) at patient's floor/unit and/or counseling patient: Exam Narrative: NAD abdomen soft, appropriately tender, incision CDI Extremities nontender with 1+ edema
--- NOTE | 2021-11-10 07:50 | PM.DS ---
DS: Admitting Diagnosis Discharge Date 11/10/21 Admitting Diagnosis Term IUP, elevated BPs in office DS: Discharge Diagnosis Discharge Diagnosis (1) delivery delivered: Code(s): O82 - Encounter for delivery without indication Status: Acute DS: Summary Hospital Course Reason for hospitalization: induction of labor Hospital Course: Lois was admitted for induction of labor for elevated BPs in office. She failed induction with two cervidils and pitocin for 10 hours. She requested delivery with salpingectomy. her postop course was uncomplicated. Time Spent with Patient Time attestation: Total time spent providing and/or coordinating discharge services: DS: Data Data Completed and Pending Completed studies during hospitalization: Pending at discharge 11/08/21 10:21 Surgical [PTH] Routine Discharge Plan Discharge Attending physician on discharge: Lucila Myers Discharging Clinician: Lucila Myers Anticipated Discharge Date/Time: 11/10/21 07:47 Patient Disposition: Home, Self-Care Activity: may shower, may drive after 2 weeks and pelvic rest Diet: regular Patient Instructions: Antibiotic Form Stand Alone Forms: General Discharge Information Follow-up/Referrals: Lucila Myers MD [Physician] - 1 Week Discharge Medications: New hydrocodone-acetaminophen 5-325 mg Tablet 1 tablet PO Q4-5H PRN (Reason: Moderate Pain (4-6)) Qty: 30 RF: 0 docusate sodium 100 mg Capsule 100 mg PO BID PRN (Reason: constipation) Qty: 60 RF: 0 naproxen 500 mg Tablet 500 mg PO BIDWM PRN (Reason: Abdominal Cramping) Qty: 60 RF: 0 Continued PNV [id number]-ferrous fumarate-FA [] 28 mg iron- 800 mcg Tablet 1 tablet PO DAILY RF: 0 esomeprazole magnesium 40 mg capsule,delayed release(DR/EC) 40 mg PO DAILY Qty: 30 RF: 3 Discontinued omeprazole 40 mg capsule,delayed release(DR/EC) 40 mg PO DAILY RF: 0 Date of admission: 11/06/21 18:47 Primary Care Provider: Adams Luna Admitting Provider: Lucila Myers Attending physician on admission: Lucila Myers Condition: Stable
--- NOTE | 2021-11-10 08:00 | PC.NURSE ---
Recommended patient view the discharge video Mother & Baby Care, The First Two Weeks before discharge. Patient was given the opportunity and encouraged to ask questions. Patient verbalized understanding of information shared and has been given the mother/baby guide for home reference.
[2021-11-10] MEDS: DOCUSATE SODIUM 100 MG CAPSULE PO (08:10)
[2021-11-10] MEDS: POLYSACCHARIDE IRON COMPLEX 150 MG CAPSULE PO (08:10)
[2021-11-10] MEDS: MULTIVIT/MIN/PREN/FOL AC/IRON TABLET 1 TAB PO (08:10)
[2021-11-10] MEDS: NAPROXEN 500 MG TABLET PO (08:11)
--- NOTE | 2021-11-10 12:38 | PC.NURSE ---
0745 - Mother led the conversation with regards to her experience and knowledge of feeding her baby. Reminded parents to use good handwashing to prevent infection. Infant has had appropriate feedings in the past 24 hours and meets the outcomes for weight, output and jaundice. Mother states she feels confident to continue effectively her at home and states she has no pain with latch. Reviewed production of human milk, transition of milk, signs of adequate intake and engorgement prevention/relief and when to call the infant care provider using the mom and baby guide. Reviewed medications mother is taking with information provided by [facility], community resources and outpatient services as listed in the mom and baby guide/[facility] website. Mother acknowledges understanding to watch for feeding cues for responsive on demand feedings and how to stimulate infant to initiate feeding three hours from the start of the last feeding. Reported to primary RN. 0845 - Mother she has optimally latched with no pain. 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 Mother states it is because she has just finished a breastfeed. Reviewed resources, when to call the ICP, and the above teaching education. Mother states she has done a lot of reading about and is well without discomfort. Reported to primary RN.
[2021-11-11 08:27] VITALS: BP 119/74; PULSE 78; RESP 20; TEMP 36.9; O2SAT 100
== END 2021-11-10 10:27 | disposition home or self-care (01) | DRG 785 ==
LOC: ANHLDR 18:52 → ANHOB2 11-08 12:22
PROVIDERS: Admitting Provider Obstetrics & Gynecology; PCP Family Medicine; Visit Provider Obstetrics & Gynecology
PROC: 10D00Z1 Extraction of Products of Conception, Low, Open Approach (ICD-10-PCS; CPT 59514; principal; 2021-11-08 09:00)
DX: O13.4 Gestational [pregnancy-induced] hypertension without significant proteinuria, complicating childbirth (principal); Z37.0 Single live birth; Z3A.39 39 weeks gestation of pregnancy; O61.0 Failed medical induction of labor; O99.62 Diseases of the digestive system complicating childbirth; K21.9 Gastro-esophageal reflux disease without esophagitis; Z23 Encounter for immunization; O99.214 Obesity complicating childbirth; E66.9 Obesity, unspecified
CPT/HCPCS: 36415; 80053; 84550; 85025; 86592; 86850; 86900; 86901; 88302; A9270; J0131; J0690; J1100; J1885; J2274; J2405; J2590; J2704; J7120

== ENCOUNTER 2022-09-24 16:29 | Outpatient (CLI) | payer BC, SELFPAY ==
--- NOTE | ~2022-09-24 | XR_ITS ---
EXAM: XR hand RT min 3V DATE: 09/24/2022 16:43 HISTORY: PAIN throughout 1ST DIGIT x 1 month no injury . COMPARISON: None available. FINDINGS: Normal mineralization. No fracture or dislocation. No lytic or blastic lesion. Joint space s are maintained. No erosion or periosteal change. Soft tissues within normal limits. IMPRESSION: Normal right hand radiograph findings. Reviewed, dictated and finalized at location K. 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
== END 2022-09-24 16:30 | disposition home or self-care (01) ==
PROVIDERS: PCP Family Medicine; Visit Provider Family Medicine
DX: M79.644 Pain in right finger(s) (principal)
CPT/HCPCS: 73130

== ENCOUNTER 2024-10-26 16:28 | Outpatient (CLI) | payer OTHER, SELFPAY ==
--- NOTE | ~2024-10-26 | XR_ITS ---
EXAM: XR foot LT min 3V DATE: 10/26/2024 16:46 HISTORY: pain in left foot . COMPARISON: None available. FINDINGS: Normal mineralization. No fracture or dislocation. No lytic or blastic lesion. Mild hallux valgus. Mild degenerative change at the first MTP joint. Small os navicularis. Mild Achilles and jenelle ntar enthesopathy. No erosion or periosteal change. Soft tissues within normal limits. 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 Reviewed, dictated and finalized at location K. [facility]
--- OUTSIDE RECORDS SUMMARY | 2024-10-26 18:32 | XMS_ITS | Data Portability ---
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 Name Role Phone FLOYD CADE Primary Care Provider Assessment Encounter Date Assessment Date Assessment LastModified by Organization Details LastModified Time 12/20/2021 12/20/2021 Normal exam May resume normal activities contraceptive plan-- salpingectomy done FU for WWE 1-2 mos [email or web address] Not available 12/20/2021 10:39:21 05/02/2022 05/02/2022 healthy female exam patient declines std testing pap done for LSIL 2015 mammogram at 41 contraceptioon- salpingectomy FU 1 year or prn [email or web address] Not available 05/02/2022 17:07:44 05/20/2023 05/20/2023 healthy female exam patient declines std testing pap done for LSIL 2015 mammogram at 41 contraception-sa lpingectomy omeprazole refilled. FU 1 year or prn Not available 05/20/2023 10:25:36 05/25/2024 05/25/2024 Annual gynecological exam performed. Patient will come back in a year unless there are new symptoms. [email or web address] Not available 05/25/2024 16:02:47 Plan of Treatment Reminders Order Date Submit Date Provider Last Modified By Organization Details Last Modified Time Details Appointments None recorded. Lab None recorded. Referral None recorded. Procedures None recorded. Surgeries None recorded. Imaging None recorded. Medication Orders omeprazole 40 mg capsule,del ayed release 2023 024 [facility], [facility] [facility] [place], [id number], 4 16:39:30 omeprazole 40 mg capsule,del ayed release 2022 023 [facility], [address] [facility], [place], [place], [id number], 3 10:25:59 Patient TargetsNo targets recorded. Patient InstructionsNo instructions recorded. Reason for Referral None Reported. Results Created Date Observation Date Name Description Value Unit Range Abnormal Flag Note LastModifiedBy Organization Detail LastModifiedTime 05/02/20 22 05/02/2022 IMAGE GUIDE D PAP AND HPV REGAR DLESS image guided Pap, HPV regardless of Pap result SEE RESULT S BELOW CASE REPOR T: Cytol ogy Gynec ologi sidney Repor t Case: [id number] Autho carlos tyler Provi darya: Lucila Al, MD Boucher cted: 05/02 1636 Order ing Locat ion: [place] [facility] Recei rober: 05/03 0130 First Scree n: Bettina Gardner ica Speci men: Scree vane Pap - Image d, Cervi x STATE MENT OF ADEQU ACY: Satis facto ry for evalu ation Trans forma tion zone compo nent absen t The absen ce of an endoc ervic al compo nent was confi rmed by an addit ional scree ner. FINAL DIAGN OSIS: Negat debra for Intra epith elial Sarah n or Shahid luong (NIL) . Shift in jojo sugge stive of bacte rial vagin osis. Elect tamika rollins d by Latesha Ochoa ret, CT for Bettina Gardner ica on 2021 at 2:07 PM ----- ----- ----- ----- ----- ----- ----- ----- ----- ----- ----- ----- ----- ----- ----- ----- ----- ---- HPV RESUL TS: HPV mRNA E6/E7 : No HPV mRNA Detec gerhard NOTE: This high risk HPV mRNA assay detec ts fourt een high- risk HPV types (16, 18, 31, 33, 35, 39, 45, 51, 52, 56, 58, 59, 66, 68) witho ut diffe renti ation . COMME NT: Note: This speci men was revie wed by a Cytot echno logis t and/o r Patho logis t (as indic ated in this repor t) after evalu ation using the Thinp rep Imagi ng Syste m. CLINI SIDNEY INFOR MATIO N: Menst rual Statu s: LMP (if appli cable ): Clini sidney Histo ry/Pr eviou s Pap: Type of Neopl abraham (if appli cable ): Signi fican t Clini sidney Findi ngs: Other Histo ry: Hormo capri (if appli cable ): PAP EDUCA FREDY L NOTE: The Pap Test is a scree vane test with an inher ent false negat debra rate. Liqui d-bas ed sampl ing may decre ase, but will not elimi collette, false negat debra resul ts. A negat debra resul t does not precl ude the prese nce and/o r devel opmen t of disea se, since the prese nce of abnor mal cells in the sampl e depen ds on the locat ion of the lesio n and sampl ing techn ique. Jose nued regul ar scree vane is the best metho d of cance r preve ntion . If repor gerhard cytol ogic findi ng do not corre late with physi sidney and/o r histo rical findi ngs, furth er inves tigat ion is recom richa d, as clinbetty woodward nted. Not Available [facility] Infectious Disease [address] [place], [address], 05/08/2022 15:10:22 05/20/20 23 05/20/2023 IMAGE GUIDE D PAP AND HPV REGAR DLESS image guided Pap, HPV regardless of Pap result SEE RESULT S BELOW CASE REPOR T: Cytol ogy Gynec ologi sidney Repor t Case: [id number] Autho carlos tyler Provi darya: Lucila Al MD Colle cted: 05/20 1323 Order ing Locat ion: [place] [facility] Recei rober: 05/21 0310 First Scree n: Christiano Grullon , CT Rescr een: Supriya Jackson, CT Speci men: Baljinder cifuentes Pap - Image d, Cervi x STATE MENT OF ADEQU ACY: Satis facto ry for evalu ation Trans forma tion zone compo nent absen t The absen ce of an endoc ervic al compo nent was confi rmed by an addit ional baljinder de jesus. FINAL DIAGN OSIS: Negat debra for Intra epith elial Lesio n or Shahid luong (NIL) . Shift in jojo sugge stive of bacte rial vagin osis. Elect tamika rollins d by Supriya Jackson, CT on 2022 at 10:14 AM ----- ----- ----- ----- ----- ----- ----- ----- ----- ----- ----- ----- ----- ----- ----- ----- ----- ---- HPV RESUL TS: HPV mRNA E6/E7 : No HPV mRNA Detec gerhard NOTE: This high risk HPV mRNA assay detec ts fourt een high- risk HPV types (16, 18, 31, 33, 35, 39, 45, 51, 52, 56, 58, 59, 66, 68) witho ut diffe renti ation . COMME NT: This speci men was revie wed by a Cytot echno logis t and/o r Patho logis t (as indic ated in this repor t) after evalu ation using the Thinp rep Imagi ng Syste m. CLINI SIDNEY INFOR MATIO N: Menst rual Statu s: LMP (if appli cable ): Clini sidney Histo ry/Pr eviou s Pap: Type of Neopl abraham (if appli cable ): Signi fican t Clini sidney Findi ngs: Other Histo ry: Hormo capri (if appli cable ): PAP EDUCA FREDY L NOTE: The Pap Test is a scree vane test with an inher ent false negat debra rate. Liqui d-bas ed sampl ing may decre ase, but will not elimi collette, false negat debra resul ts. A negat debra resul t does not precl ude the prese nce and/o r devel opmen t of disea se, since the prese nce of abnor mal cells in the sampl e depen ds on the locat ion of the lesio n and sampl ing techn ique. Jose nued regul ar scree vane is the best metho d of cance r preve ntion . If repor gerhard cytol ogic findi ng do not corre late with physi sidney and/o r histo rical findi ngs, furth er inves tigat ion is recom richa d, as clini jamal warra nted. Not Available [facility] (Lab) [address], [place], [address], 05/22/2023 11:48:56 Result Notes None recorded. 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 17:25:07 Low grade squamous intraepi thelial lesion on cervical Papanico laou smear [id number] 105 Completed 201403/28/2021 Low grade intrepit h lesion cyto smr crvx (LGSIL); Recorded Elsewher e: No Locat ion: [facility] S ource: EHR Acid Regenerator naty: N Maci ce ID: 0001 Black lable Time: 03:30:00 PM Tatiana melgar [facility] 17:25:35 Adult health examinat ion Completed 201403/28/2021 ROUTINE MEDICAL EXAM;Rec orded Elsewher e: No Locat ion: [facility] S ource: EHR Acid Regenerator naty: N Gladysti ce ID: 0001 Black lable Time: 08:30:00 AM Tatiana melgar, [facility] 17:25:01 Menstrua tion finding Completed 201403/28/2021 Excessiv e or frequent menstrua tion;Rec orded Elsewher e: No Locat ion: [facility] S ource: EHR Acid Regenerator naty: N Gladysti ce ID: 0001 Black lable Time: 08:30:00 AM Tatiana melgar, [facility] 17:25:10 Speciali zed medical examinat ion Completed 201203/28/2021 Gynecolo gical Examinat ion;Nicholas rded Elsewher e: No Locat ion: [facility] S ource: EHR Acid Regenerator naty: N Gladysti ce ID: 0001 Black lable Time: 03:00:00 PM Tatiana melgar [facility] 17:25:33 Acne [id number] Completed 201303/28/2021 Acne;Rec orded Elsewher e: No Locat ion: [facility] S ource: EHR Acid Regenerator naty: N Gladysti ce ID: 0001 Black lable Time: 08:15:00 AM Tatiana melgar [facility] 17:24:45 Pregnanc y test negative [id number] Completed 201303/28/2021 Pregnanc y examinat ion or test, negative result;R ecorded Elsewher e: No [facility]: EHR Acid Regenerator naty: N Practi ce ID: 0001 Black lable Time: 03:00:00 PM Tatiana melgar [facility] 1 17:25:00 Evaluati on finding Completed 201803/28/2021 Unsp abnormal cytolog findings in specmn from cervix uteri;Re corded Elsewher e: No Locat ion: [facility] S ource: EHR Acid Regenerator naty: N Practi ce ID: 0001 Black lable Time: 02:30:00 PM Tatiana melgar, [facility] 1 17:25:03 Emotiona l state finding Completed 201503/28/2021 Anxiety depressi on;Recor ded Elsewher e: No Locat ion: [facility] S ource: EHR Acid Regenerator naty: N Practi ce ID: 0001 Black lable Time: 01:00:00 PM Tatiana melgar, [facility] 1 17:24:51 Low grade squamous intraepi thelial lesion on vaginal Papanico laou smear [id number] 9105 Active 2014 Tatiana melgar, [facility] 1 17:24:49 Vaginiti s and vulvovag initis Completed 201303/28/2021 Vaginiti s;Record ed Elsewher e: No Locat ion: [facility] S ource: EHR Acid Regenerator naty: N Practi ce ID: 0001 Black lable Time: 08:15:00 AM Tatiana melgar [facility] 1 17:24:56 Speciali zed medical examinat ion Completed 201007/25/2012 Gynecolo gical Examinat ion;Nicholas rded Elsewher e: No Locat ion: [facility] S ource: EHR Acid Regenerator naty: N Practi ce ID: 0001 Black lable Time: 08:30:00 AM Tatiana melgar, [facility] 1 17:25:33 Finding of menstrua l bleeding Completed 201503/28/2021 Menorrha radha;Nicholas rded Elsewher e: No Locat ion: [facility] S ource: EHR Acid Regenerator naty: N Gladysti ce ID: 0001 Black lable Time: 08:30:00 AM Tatiana melgar, [facility] 1 17:24:58 Neoplasm of uncertai n behavior of skin [id number] Completed 201303/28/2021 Neoplasm of uncertai n behavior of skin;Rec orded Elsewher e: No Locat ion: [facility] S ource: EHR Acid Regenerator naty: N Maci ce ID: 0001 Black lable Time: 08:15:00 AM Tatiana melgar, [facility] 1 17:25:38 Screenin g for malignan t neoplasm of cervix Completed 201007/25/2012 Screenin g for malignan t neoplasm s of the cervix;R ecorded Elsewher e: No Locat ion: [facility] S ource: EHR Acid Regenerator naty: N Maci ce ID: 0001 Black lable Time: 08:30:00 AM Tatiana melgar, [facility] [address] 17:24:[address] Concept Completed 201503/28/2021 Encntr for general adult medical exam w/o abnormal findings ;Recorde d Elsewher e: No Locat ion: [facility] S ource: EHR Acid Regenerator naty: N Gladysti ce ID: 0001 Black lable Time: 08:30:00 AM Tatiana melgar, [facility] 1 17:25:05 Family planning surveill ance Completed 201303/28/2021 Contrace ptive surveill ance, unspecif ied;Nicholas rded Elsewher e: No Locat ion: [facility] S ource: EHR Acid Regenerator naty: N Practi ce ID: 0001 Black lable Time: 02:00:00 PM Tatiana Cosme talia, [facility] 1 17:25:08 Insertio n of intraute rine contrace ptive device Completed 201303/28/2021 INSERTIO N OF IUD;Nicholas rded Elsewher e: No Locat ion: [facility] S ource: EHR Acid Regenerator naty: N Practi ce ID: 0001 Black lable Time: 03:00:00 PM Tatiana Cosme talia, [facility] 1 17:25:36 Screenin g for malignan t neoplasm of cervix Completed 201103/28/2021 Pap Smear;Pr actice ID: 0001 Tatiana Cosme talia, [facility] 1 17:24:54 Pregnanc y 02356761 Completed 202011/20/2021 Ale Barajas hl null, [facility] 2 13:45:47 Elderly primigra mayito 26082301 Completed NIPT/AFP WNL Ale Barajas hl null, [facility] 2 14:11:24 Motion sickness 38611785 Completed zofran Ale Barajas hl null, [facility] 2 14:11:24 Maternal obesity complica ting pregnanc y, childbir th and the puerperi um, antepart um [id number] 7 Completed BMI 35+, antenata l testing at 37 weeks Ale Barajas hl null, [facility] 2 14:11:24 Gastroes ophageal reflux disease 035982603 Completed january restart omeprazo le Alebernie campoverde null, [facility] 2 14:11:24 Gastroes ophageal reflux disease 419543173 Active may restart omeprazo adalberto campoverde null, [facility] 2 14:11:24 Motion sickness 45130878 Active zofrkwasi campoverde null, [facility] 2 14:11:24 Steriliz ation requeste d [id number] Completed wants tubal postpart um (or with CS if done) Ale campoverde null, [facility] 2 14:11:24 Steriliz ation requeste d [id number] Active wants tubal postpart um (or with CS if done) Ale campoverde null, [facility] 2 14:11:24 Anemia 316234972 Completed slowfe 1 tab daily Ale campoverde null, [facility] 2 14:11:24 Problem Notes None recorded. Procedures Surgical History Date Name Laterality Status Provider Name and Address Organization Details Recorded Time 05/20/20 23 Date of Last Pap Smear completed Jasmyn Ch [facility] 05/25/2024 16:07:46 10/17/19 22 Abcess Drainage completed Lucila Myers MD [address], [place], [address], [facility] 10/17/2021 18:58:18 07/25/20 20 IUD Removal completed Anika Lobo KELY- [address], [place], [address], [facility] 07/25/2020 10:32:29 05/14/20 19 Colposcopy completed Mendy Cruz [facility] 03/26/2020 14:27:14 09/05/20 19 Colposcopy completed Mendy Cruz [facility] 03/26/2020 14:43:39 12/07/19 15 Colposcopy completed Mendy Cruz [facility] 03/26/2020 14:43:44 12/14/19 05 Hernia repair w/mesh completed Kim Noyola [facility] 03/21/2020 15:40:01 Colposcopy completed Renay Gillette [facility] 06/05/2021 15:11:05 Imaging Results None recorded. Procedure Notes None recorded. Medical Equipment None Reported. Allergies No known drug allergies Medications Name Sig Start Date Stop Date Status Note LastModified by Organization Details LastModified Time hydrocodo ne 5 mg-acetam inophen 325 mg tablet 12/20 completed Not Available Not Available Not Available metronida zole 0.75 % (37.5 mg/5 gram) vaginal gel Insert 1 applicat orful every day by vaginal route at bedtime for 5 days. 05/25 completed Not Available Not Available Not Available Diflucan 150 mg tablet take 1 tablet by oral route once 06/05 completed Prescrib ed Elsewher e: No Locat ion: [facility] odify By: [email or web address] Penn ncounter DateTime : 12/16/19 16 09:46:06 AM Not Available Not Available Not Available omeprazol e 40 mg capsule,d elayed release Take 1 capsule every day by oral route. active Not Available Not Available No t Available amitripty line 50 mg tablet take 1 tablet by oral route every day at bedtime 03/16 completed Prescrib ed Elsewher e: No Locat ion: Tirso penn [facility] odify By: [email or web address] Wiliam ncounter DateTime : 06/05/20 17 08:15:00 AM Not Available Not Available Not Available amitripty line 25 mg tablet take 1 tablet by oral route every day at bedtime 06/05 completed Prescrib ed Elsewher e: No Locat ion: [facility] odify By: lbillhar tz Encou nter DateTime : 06/05/20 17 08:15:00 AM Not Available Not Available Not Available cephalexi n 500 mg capsule Take 1 capsule 3 times a day by oral route for 7 days. 12/20 completed Not Available Not Available Not Available methylpre dnisolone 4 mg tablets in a dose pack 05/20 completed Not Available Not Available Not Available ondansetr on 4 mg disintegr ating tablet Place 1 tablet twice a day by translin gual route as needed. 12/20 completed Not Available Not Available Not Available ParaGard T 380A 380 square mm intrauter ine device Take by intraute rine route. 07/25 completed paragard inserted 4 will 4 Not Available Not Available Not Available naproxen 500 mg tablet 12/20 completed Not Available Not Available Not Available Tri-Sprin ryan (28) 0.18 mg(7)/0.2 15 mg(7)/0.2 5 mg(7)-35 mcg tablet TAKE 1 TABLET BY MOUTH EVERY DAY 03/28 completed Not Available Not Available Not Available erythromy maribel with ethanol 2 % topical solution apply by topical route 2 times every day a thin layer to the affected area(s) in the morning and evening 06/05 completed Prescrib ed Elsewher e: No Locat ion: [facility] odify By: nishi lee DateTime : 05/20/20 14 08:15:00 AM Not Available Not Available Not Available omeprazol e 05/08 completed Not Available Not Available Not Available 05/20 completed Not Available Not Available Not Available Lysteda 650 mg tablet take 2 tablet by oral route 3 times every day during menses 06/05 completed Prescrib ed Elsewher e: No Locat ion: [facility] odify By: nishi lee DateTime : 12/05/19 16 08:30:00 AM Not Available Not Available Not Available Vitals Date Recorded Body height Body mass index (BMI) Body weight Systolic blood pressure Diastolic blood pressure Provider Name and Address Organization Details Last Updated DateTime 12/20/2021 171.45 cm 34.9 kg/m2 147476.8 8 g 115 mm[Hg] 77 mm[Hg] [facility] 2 10:04:53 Date Recorded Body height Body mass index (BMI) Body weight Systolic blood pressure Diastolic blood pressure Provider Name and Address Organization Details Last Updated DateTime 05/02/2022 171.45 cm 36.6 kg/m2 237156.3 9 g 120 mm[Hg] 74 mm[Hg] [facility] 2 16:50:45 Date Recorded Body height Body mass index (BMI) Body weight Systolic blood pressure Diastolic blood pressure Provider Name and Address Organization Details Last Updated DateTime 05/20/2023 171.45 cm 32.6 kg/m2 70544.99 g 120 mm[Hg] 79 mm[Hg] [facility] 3 10:02:17 Date Recorded Body height Body mass index (BMI) Body weight Systolic blood pressure Diastolic blood pressure Provider Name and Address Organization Details Last Updated DateTime 05/25/2024 171.45 cm 33.5 kg/m2 13115.54 g 131 mm[Hg] 84 mm[Hg] Jasmynwiliam Rodriguezen [facility] 4 16:06:49 Social History Question Answer Notes LastModified by Organizat ion Details LastModified Time Tobacco Smoking Status Never Smoker Lillian Etinenetere [facility] 12/20/2021 09:58:29 Do You Have An Advance Directive? No [email or web address] Information not available 04/05/2021 What Is Your Level Of Alcohol Consumption? Occasional [email or web address] Information not available 03/26/2020 How Many Years Have You Consumed Alcohol? 18 Information not available 04/05/2021 Are You Blind Or Do You Have Difficulty Seeing? Yes Information not available 04/05/2021 What Is Your Level Of Caffeine Consumption? Occasional Information not available 04/05/2021 How Much Tobacco Do You Chew? None Information not available 04/05/2021 In The 14 Days Before Symptom Onset, Have You Had Close Contact With A Laboratory-confir med COVID-19 While That Case Was Ill? No [email or web address] Information not available 04/05/2021 In The 14 Days Before Symptom Onset, Have You Had Close Contact With A Person Who Is Under Investigation For COVID-19 While That Person Was Ill? No [email or web address] Information not available 04/05/2021 Have You Been To An Area Known To Be High Risk For COVID-19? No Information not available 04/05/2021 Are You Deaf Or Do You Have Serious Difficulty Hearing? No [email or web address] Information not available 04/05/2021 What Type Of Diet Are You Following? REGULAR [email or web address] Information not available 04/05/2021 Do You Or Have You Ever Used E-cigarettes Or Vape? Never Used Electronic Cigarettes [email or web address] Information not available 12/20/2021 What Is The Highest Grade Or Level Of School You Have Completed Or The Highest Degree You Have Received? 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 No Information not available 04/05/2021 What Was The Date Of Your Most Recent Tobacco Screening? 03/26/2020 [email or web address] Information not available 12/20/2021 Do You Use Protection During Sex? Usually [email or web address] Information not available 04/05/2021 Do You Use Your Seat Belt Or Car Seat Routinely? Yes [email or web address] Information not available 04/05/2021 Do You Have Smoke And Carbon Monoxide Detectors In Your Home? Yes [email or web address] Information not available 04/05/2021 Do You Or Have You Ever Used Smokeless Tobacco? Never Used Smokeless Tobacco [email or web address] Information not available 12/20/2021 How Much Tobacco Do You Smoke? No [email or web address] Information not available 03/26/2020 Do You Feel Stressed (tense, Restless, Nervous, Or Anxious, Or Unable To Sleep At Night)? [id number] [email or web address] Information not available 04/05/2021 Do You Use Any Illicit Or Recreational Drugs? No [email or web address] Information not available 04/05/2021 Do You Use Sunscreen Routinely? No [email or web address] Information not available 04/05/2021 Have You Used IV Drugs? No Information not available 04/05/2021 Sex: Unknown Functional Status Question Answer Note LastModified by Organizat ion Details LastModified Time Are you able to walk? YESWOREST [email or web address] Information not available 04/05/2021 What is your exercise level? Occasional Information not available 03/26/2020 Mental Status None recorded. Family History Relationship Description Onset Age of this Age Resolved Age Notes LastModified by Organization Details LastModified Time Father No current problems or disability [email or web address] Not available 03/30 16:07:43 Mother No current problems or disability [email or web address] Not available 03/30 16:07:43 Medical History Condition Response History of abnormal pap Y Gynecological History Statement/Question Response Abnormal Pap Yes Flow Moderate Date of LMP 05/08/2024 On BCP's at Conception? N N Was last menstrual period normal Y STIs/STDs N HPV Vaccine N Colposcopy 05/14/2019 Duration of Flow (days) 3 Current Control Method Sterilizati on Frequency of Cycle (Q days) 29 Sexually Active? Y Age of first menstrual cycle 10 Date of Last Pap Smear 05/20/2023 Sexual Problems? N LMP Approximate N Obstetrics History GPAL:G 1 P 1 0 0 1 Type Value Full Term 1 Living 1 Total 1 Past Encounters Encounter ID Performer Location Encounter Start Date Encounter Closed Date Diagnosis/Indication Diagnosis SNOMED-CT Code Diagnosis ICD10 Code Diagnosis Note [id number] [facility] [address] [address] 03/26/2020 12:23:11 03/26/2020 13:36:44 Gynecologic examination [id number] Z01.419 Take Calcium with Vitamin D 1200mg daily if not receiving in daily diet. It is strongly advised to have an annual flu shot and up can obtain at most pharmacies . If you have not had a TDap shot in the last 10 years you should obtain one as well. Discussed with patient & provided with informatio n regarding Gardisil vaccine to prevent the 4 strains for HPV that cause cervical cancer if under age 26. Encourage safe sexual practices, to use condoms and limit partners if not already in a monogamous relationsh ip. Do monthly self breast exams. Have mammogram yearly or every other year depending on family history. BRCA testing is now available for patients with strong genetic history of female cancer. If interested contact the office. Engage in daily exercise of low impact aerobic exercise 45-60 minutes 4-5 times weekly. Avoid tobacco and illicit drugs as well as using moderation with alcohol intake less than 1-2 8 oz beverages daily. This lifestyle behavior pattern will lead to less health conditions and longer life span. If BMI greater than 25 weight watchers or dietary consult advised. Patient received above instructio ns, and questions have been answered. If you have any questions please call or respond to this email. Patient was made aware of the patient portal and may obtain a paper copy of today's plan if desired. [id number] Anika Lobo , [facility] [address],[facility] [address] 07/25/2020 10:04:37 07/27/2020 12:06:39 Removal of intrauterine device [id number] Z30.432 Patient is here due to the approachin g due date or the nature of her IUD and wishes to have it removed. She expressed understand ing. It was explained that she may have bleeding or spotting after the removal of the device today as well. If cannot see the strings of this device we will need to get an US image to make that the device is still in place and not in an unobtainab le position. She expressed understand ing of all the above instructio ns. Secondary dysmenorrhea [id number] N94.5 Discussed all control options in great detail. Pt would like to start ocp. She is aware of the risks and benefits. She does not have any medical condition that is contraindi cated with the use of estrogen containing control. Pt will start her pills on the first saturday following the start of her period. She is aware it is not effective for control the first month. She is also aware of the importance of taking at the same time every day. Encouraged use of condoms as the pill does not protect against STD's. Will return in 3 months for med check. Consent was read and signed. Pt verbalized understand ing. Wants to go back on OCP's. Did well on these in the past. Ortho-tri- cyclen sent RTO x 3mos [id number] Enedina Alvares [facility] [address],[place] [address] 04/05/2021 10:57:45 04/05/2021 12:08:23 Gynecologic examination 59253548 Z01.419 Z11.51 test positive 784947155 Z32.01 Risk factors addressed: Tobacco Cessation, Safe Sexual Practices, environmen kellee, work hazards, travel restrictio ns, seat belt use.Eat a health well balanced diet, avoid alcohol, tobacco, and street drugs.Enga ge in daily low impact exercise, avoid temperatur e extremes, and cat, rodent, and bird feces.Avoi d travel to areas where zika virus is a concern.Of fered cf/sma/nip t. Desires all 3. Handouts given and discussed with patient.Ch ildbirth classes recommende d.New OB sheet given.If previous , counseling .Pt verbalizes that she understand s the importance of above instructio ns.All questions were answered.P atient reminded to have annual well woman examinatio n and address preventati [facility] . [id number] [facility] [address],[place] [address] 04/05/2021 10:57:22 04/05/2021 14:29:14 [address] [facility] [address],[place] [address] 05/08/2021 09:22:20 05/08/2021 10:20:32 screening 727046274 Z36.82 [id number] Lucila Myers MD [facility] [address],[place] [address] 05/08/2021 09:22:28 05/08/2021 11:09:51 Routine care 225216823 Z34.91 Maternal o besity complicating , childbirth and the puerperium, antepartum 1208901540 07 O99.211 Gastroesop hageal reflux disease 467968648 K21.9 Motion sickness 55473578 T75.3XXA Elderly primigravida 293 76974 O09.519 [id number] Kee Banks MD [facility] [address],[place] [address] 06/05/2021 15:01:54 06/05/2021 15:51:26 Routine care 992048811 Z34.02 [id number] Enedina Alvares [facility] [address],[place] [address] 07/04/2021 09:19:42 07/04/2021 12:17:33 Routine care 030058784 Z34.92 [id number] [facility] [address],[place] [address] 07/04/2021 09:18:48 07/04/2021 10:59:14 screening for malformation 004016119 Z36.3 [id number] Haylee Severino [facility] [address],[place] [address] 07/28/2021 13:41:39 07/28/2021 15:03:52 screening 864160677 Z36.2 [id number] Lucila Myers MD [facility] [address],[place] [address] 07/28/2021 14:04:19 07/28/2021 15:04:16 Elderly primigravida 21910196 O09.519 Routine an tenatal care 001792969 Z34.91 Sterilizat ion requested 948182855 Z30.2 67[address] [facility] [address],[place] [address] 08/22/2021 17:14:45 08/23/2021 10:10:33 screening 453663123 Z36.2 [id number] Lucila Myers MD [facility] [address],[place] [address] 08/22/2021 17:18:04 08/23/2021 10:10:52 Elderly primigravida 27531540 O09.519 Maternal o besity complicating , childbirth and the puerperium, antepartum 5112315162 07 O99.211 [id number] Lucila Myers MD [facility] [address],[place] [address] 09/05/2021 09:21:49 09/05/2021 10:00:23 Elderly primigravida 12918785 O09.519 Maternal o besity complicating , childbirth and the puerperium, antepartum 6492134583 07 O99.211 [id number] Lucila Myers MD [facility] [address],[place] [address] 09/18/2021 09:43:35 09/18/2021 10:18:22 Elderly primigravida 67251111 O09.519 Maternal o besity complicating , childbirth and the puerperium, antepartum 3996371602 07 O99.211 [id number] Lucila Myers MD [facility] [address],[place] [address] 10/03/2021 18:10:23 10/04/2021 09:16:29 Elderly primigravida 09295167 O09.519 Maternal o besity complicating , childbirth and the puerperium, antepartum 7612364145 07 O99.211 [id number] Lucila Myers MD [facility] [address],[place] [address] 10/17/2021 18:09:26 10/18/2021 10:47:52 Elderly primigravida 89048887 O09.519 Abscess of vulva 8613237 1 N76.4 [id number] [facility] [address],[place] [address] 10/23/2021 16:15:56 10/23/2021 17:15:19 Maternal obesity complicating , childbirth and the puerperium, antepartum 3179154124 07 O99.213 Z3A.37 [id number] Lucila Myers MD [facility] [address],[place] [address] 10/23/2021 16:16:48 10/24/2021 16:47:55 Elderly primigravida 87772887 O09.519 Maternal o besity complicating , childbirth and the puerperium, antepartum 0042152113 07 O99.213 Elevated blood-pressure reading without diagnosis of hypertension 436911637 R03.0 88773 Franklin Ruiz [facility] [address],[place] [address] 10/23/2021 16:17:26 10/23/2021 17:48:02 Maternal obesity complicating , childbirth and the puerperium, antepartum 9106322917 07 O99.213 [id number] Lucila Myers MD [facility] [address],[place] [address] 10/27/2021 09:57:31 10/27/2021 10:46:53 Increased blood pressure 47025446 R03.0 54704 Meredith Gillette [facility] [address],[place] [address] 10/30/2021 16:15:36 10/30/2021 17:09:56 Maternal obesity complicating , childbirth and the puerperium, antepartum 7390114955 07 O99.213 Z3A.38 52147 Mendy Cruz [facility] [address],[place] [address] 10/30/2021 16:19:07 10/30/2021 17:47:35 Maternal obesity complicating , childbirth and the puerperium, antepartum 1834406540 07 O99.213 [id number] Lucila Myers MD [facility] [address],[place] [address] 10/30/2021 16:19:29 10/30/2021 18:14:47 Routine care 945663331 Z34.91 Elderly primigravida 293 15460 O09.519 Maternal o besity complicating , childbirth and the puerperium, antepartum 8672535735 07 O99.213 13527 Mendy Cruz [facility] [address],[place] [address] 11/06/2021 16:19:43 11/06/2021 17:07:36 Maternal obesity complicating , childbirth and the puerperium, antepartum 2194346117 07 O99.213 [id number] Meredith Gillette [facility] [address],[place] [address] 11/06/2021 16:20:19 11/06/2021 17:54:59 Maternal obesity complicating , childbirth and the puerperium, antepartum 0338637493 07 O99.213 O09.513 Z3A.39 [id number] Lucila Myers MD [facility] [address],[place] [address] 11/06/2021 16:21:00 11/06/2021 18:18:29 Elderly primigravida 01309273 O09.519 - induced hypertension 21634089 O13.9 [id number] MD Kimberly Oseguera [address],[place] [address] 11/20/2021 15:57:47 11/20/2021 16:32:58 Postoperative visit 529019470 Z09 - induced hypertension 61020709 O13.9 [id number] Lucila Myers MD [facility] [address],[place] [address] 12/20/2021 09:58:05 12/20/2021 10:42:52 care 002319521 Z39.2 [id number] Lucila Myers MD [facility] [address],[place] [address] 02/20/2022 17:40:30 03/19/2022 22:12:09 [id number] Lucila Myers MD [facility] [address],[place] [address] 05/02/2022 16:42:29 05/02/2022 17:10:52 Gynecologic examination 54691615 Z01.419 Low grade squamous intraepithelial lesion on vaginal Papanicolaou smear 1750286825 20043 R87.622 [id number] MD Kimberly Oseguera [address],[place] [address] 05/20/2023 09:57:20 05/20/2023 10:52:14 Gastroesophageal reflux disease 302605482 K21.9 Gynecologi c examination 55491438 Z01.419 Z11.51 Low grade squamous intraepithelial lesion on vaginal Papanicolaou smear 0923492392 16819 R87.622 [id number] ENE FREITAS MD [facility] [address],[place] [address] 05/25/2024 15:42:26 05/25/2024 17:08:28 Gastroesophageal reflux disease 827139055 K21.9 Gynecologi c examination 23578238 Z01.419 [facility] woman [facility]- Cervical cancer screening: Pap smear not indicated obtained today, will follow up on the results with the patient as they become available- Breast cancer screening: mammogram not indicated- Colon cancer screening: does not qualify- STD testing: declined- hereditary cancer screening: does not qualify for testing Health Concerns Section Related Observation LastModified by Organization Detai ls LastModified Time None Recorded Concern Status LastModified by Organization Details LastModified Time None Recorded Advance Directives Directive N: Payers Encounter Date Sequence Insurance Name Policy Number Policy Serrano Covered Member ID Serrano Member ID Guarantor Name 12/20/2021 1 [place] [id number] Lois Ried Ishum [id number] Lois Reid Ishum 02/20/2022 1 [place] [id number] Lois Reid Ishum [id number] Lois Reid Ishum 05/02/2022 1 [place] [id number] Lois Reid Ishum [id number] Lois M Ishum 05/20/2023 1 [place] [id number] Lois Reid Ishum [id number] Lois Reid Ishum 05/25/2024 1 [facility] [id number] Lois Ishum [id number] Lois M Ishum Notes Date Note Type Note Provider Name and Address Organization Details Recorded Time 12/20/2021 text/html Patient is a 36yo presenting for a 4 week visit. She had a CS and salpingectomy on 11/08 at 39 weeks GA. Baby Renay doing well. Doing well overall. . Normal lochia. Pain- none. Bowel and bladder function normal. Period-no Annual due:now, last 03/2020 Concerns: none Lucila Myers MD [address], [place], [address], [facility] 12/20/2021 10:40:17 05/02/2022 text/html Patient is a 37y o who presents for an annual exam. Renay 6mo, doing great. No cocnerns. still some. last pap-03/2021 NILM, LSIL in 2014 sexually active-y contraception-salpin gectomy seatbelts-y exercise-y depression-denies domestic violence-denies tobacco-n concerns-n Lucila Myers MD [address], [place], [address], [facility] 05/02/2022 17:07:57 05/20/2023 text/html Patient is a 38y o who presents for an annual exam. LSIL pap 2014. no concerns. Down 26# from last year. Engaged! will elope to jo. Renay 18mo, doing great! last pap-04/2022 NILM sexually active-y contraception-salpin gectomy seatbelts-y exercise-y depression-denies domestic violence-denies tobacco-n concerns-needs refill on omeprazole Lucila Myers MD [address], [place], [address], [facility] 05/20/2023 10:26:10 05/25/2024 text/html Presents today f or her annual well-woman exam. Denies abnormal vaginal discharge. She is sexually active and denies dyspareunia. She is using tubal ligation for contraception, and she states that she is satisfied with this method. She has not noticed any changes or masses in her breasts. LMP 05/08/24. Periods are Q28 days and last 3 days. Flow is moderate, no intermenstrual spotting. ENE FREITAS MD [address], [place], [address], [facility] 05/25/2024 16:46:32 OBGyn Episode Ob Episode Information Episode Created Date Number of Fetuses Patient Bloodtype Patient rh Status Prepregnancy Weight lbs Domestic Partner Domestic Partner Phone Father Name Acquisition Specialist Status 05/08/20 21 1 O Positive 227 CLOSED Fetus Data First Name Last Name Admitted to NICU Weight (g) Sex Living Outcome Pediatric Complications Fetus ID Race Codes Race Delivery Type Renay [phone] F true Full Term [id number] Primary Problems Problem Notes history inguinal hernia repa ir with mesh, bilateral Problem Name Start Date End Date Resolution Snomed Code Not e Elderly primigravida [id number] NIPT/AFP WNL Motion sickness MEDICATION [id number] zof ran Maternal obesity complicating , childbirth and the puerperium, antepartum [id number] BMI 3 5+, testing at 37 weeks Gastroesophageal reflux disease MEDICATION 626459873 may restart omeprazole Sterilization requested [id number] wants tubal (or with CS if done) Anemia MEDICATION [id number] slowfe 1 tab daily Ishan Calculation Initial Ishan Date Initial Exam Date Initial Exam Provider Initial Ultrasound Date Last Menstrual Period Date Ultra Sound Weeks Gestation 11/09/2021 05/08/2021 04/05/2021 02/02/2021 9 Eighteen To Twenty Week Ishan Update Ultra Sound Date Fundal Height At Umbil Quickening Date Ultra Sound Latest Weeks Gestation Final Ishan Confirmed By Final Ishan Confirmed Date Final Ishan Date Ultra Sound Latest Days Gestation 0 [id number] 05/08/2021 11/10/19 22 0 Pre- Flowsheet Flowsheet Date 05/08/2021 Orta Score Blood Edema Fundus Height Fundus Units Glucose Ketones Leukocytes Nitrite Labor Signs Protein Cervic Dilation Cervic Effacement Cervic Station neg none trace Type Weight in lbs Pre/Post Dialysis Refused Weight 230.931273695471 BP Diastolic BP Location Tested BP Systolic BP Type 79 128 Fetus Heart Rate Present A 160 Fetus Movement A No Comments Lois is a 36yo G1 at 13w4d presenting for care. FOBNI. is complicated by BMI 35.5, AMA, and GERD. SHe will restart her omeprazole as GERD is bad. Having motion sickness in car- zofran prn, discussed side effects and risks. Labs and NIPT today. Has had COVID vaccine. Discussed testing at 37 weeks. Flowsheet Date 06/05/2021 Orta Score Blood Edema Fundus Height Fundus Units Glucose Ketones Leukocytes Nitrite Labor Signs Protein Cervic Dilation Cervic Effacement Cervic Station neg none 17 trace Type Weight in lbs Pre/Post Dialysis Refused Weight 237.339679685404 BP Diastolic BP Location Tested BP Systolic BP Type 79 R arm 132 sitting Fetus Heart Rate Present A 155 Fetus Movement A No Comments Discussed alpha protei n, discussed GERD symptoms, resolved with omeprazole, discussed elevated hemoglobin A1c and early gestational diabetes testing. To return in 2 and half weeks. Flowsheet Date 07/04/2021 Orta Score Blood Edema Fundus Height Fundus Units Glucose Ketones Leukocytes Nitrite Labor Signs Protein Cervic Dilation Cervic Effacement Cervic Station Type Weight in lbs Pre/Post Dialysis Refused BP Diastolic BP Location Tested BP Systolic BP Type Fetus Heart Rate Present Fetus Movement Comments Flowsheet Date 07/04/2021 Orta Score Blood Edema Fundus Height Fundus Units Glucose Ketones Leukocytes Nitrite Labor Signs Protein Cervic Dilation Cervic Effacement Cervic Station none Type Weight in lbs Pre/Post Dialysis Refused Weight 238.397070179514 BP Diastolic BP Location Tested BP Systolic BP Type 6 Fetus Heart Rate Present Fetus Movement A Yes Comments Having a girl February . Doing well. Baseline anatomy today. Flowsheet Date 07/28/2021 Orta Score Blood Edema Fundus Height Fundus Units Glucose Ketones Leukocytes Nitrite Labor Signs Protein Cervic Dilation Cervic Effacement Cervic Station Type Weight in lbs Pre/Post Dialysis Refused BP Diastolic BP Location Tested BP Systolic BP Type Fetus Heart Rate Present Fetus Movement Comments Flowsheet Date 07/28/2021 Orta Score Blood Edema Fundus Height Fundus Units Glucose Ketones Leukocytes Nitrite Labor Signs Protein Cervic Dilation Cervic Effacement Cervic Station neg none 27 trace Type Weight in lbs Pre/Post Dialysis Refused Weight 245.040745353211 BP Diastolic BP Location Tested BP Systolic BP Type 78 120 Fetus Heart Rate Present A 135 Fetus Movement A Yes Comments Doing well. Decided she want s tubal, discussed RBA, will do with CS if she has one, or do 6w pp if not. GERD much improved. GCT next visit. US today DA still not seen, will repeat next visit. Flu and Tdap encouraged, will do. Flowsheet Date 08/22/2021 Orta Score Blood Edema Fundus Height Fundus Units Glucose Ketones Leukocytes Nitrite Labor Signs Protein Cervic Dilation Cervic Effacement Cervic Station Type Weight in lbs Pre/Post Dialysis Refused BP Diastolic BP Location Tested BP Systolic BP Type Fetus Heart Rate Present Fetus Movement Comments Flowsheet Date 08/22/2021 Orta Score Blood Edema Fundus Height Fundus Units Glucose Ketones Leukocytes Nitrite Labor Signs Protein Cervic Dilation Cervic Effacement Cervic Station neg none none trace Type Weight in lbs Pre/Post Dialysis Refused Weight 247.079486511971 BP Diastolic BP Location Tested BP Systolic BP Type 78 121 Fetus Heart Rate Present A 140 Fetus Movement A Yes Comments Doing great, no concerns. An atomy now finally complete and wnl. 47%. Will do flu and Tdap. Doing 3hr GTT on . Flowsheet Date 09/05/2021 Orta Score Blood Edema Fundus Height Fundus Units Glucose Ketones Leukocytes Nitrite Labor Signs Protein Cervic Dilation Cervic Effacement Cervic Station neg trace 31 none trace Type Weight in lbs Pre/Post Dialysis Refused Weight 249.484171190427 BP Diastolic BP Location Tested BP Systolic BP Type 71 111 Fetus Heart Rate Present A 150 Fetus Movement A Yes Comments Doing well. 3hr was normal. Flu and Tdap done, discussed booster for COVID, will do. Now uncertain re tubal, may want IUD instead. Flowsheet Date 09/18/2021 Orta Score Blood Edema Fundus Height Fundus Units Glucose Ketones Leukocytes Nitrite Labor Signs Protein Cervic Dilation Cervic Effacement Cervic Station neg trace 33 none trace Type Weight in lbs Pre/Post Dialysis Refused Weight 247.336898475600 BP Diastolic BP Location Tested BP Systolic BP Type 75 116 Fetus Heart Rate Present A 140 Fetus Movement A Yes Comments Doing great, no concerns. Ge tting COVID booster today. Great FM. Flowsheet Date 10/03/2021 Orta Score Blood Edema Fundus Height Fundus Units Glucose Ketones Leukocytes Nitrite Labor Signs Protein Cervic Dilation Cervic Effacement Cervic Station neg trace 36 none trace Type Weight in lbs Pre/Post Dialysis Refused Weight 254.102070954631 BP Diastolic BP Location Tested BP Systolic BP Type 79 123 Fetus Heart Rate Present A 140 Fetus Movement A Yes Comments Doing great! Tons of FM. 37w testing scheduled. Flowsheet Date 10/17/2021 Orta Score Blood Edema Fundus Height Fundus Units Glucose Ketones Leukocytes Nitrite Labor Signs Protein Cervic Dilation Cervic Effacement Cervic Station neg trace 38 none trace Type Weight in lbs Pre/Post Dialysis Refused Weight 253.524087566040 BP Diastolic BP Location Tested BP Systolic BP Type 79 120 Fetus Heart Rate Present A 130 Fetus Movement A Yes Comments Doing ok except painful lump to side of anus. 4cm of induration, 3cm of fluctuance, erythema over whole area. Consented for I and D of abscess, see procedure note. Keflex, sitz baths, precautions given. testing to start next week. GBS done and discussed. Flowsheet Date 10/23/2021 Orta Score Blood Edema Fundus Height Fundus Units Glucose Ketones Leukocytes Nitrite Labor Signs Protein Cervic Dilation Cervic Effacement Cervic Station Type Weight in lbs Pre/Post Dialysis Refused BP Diastolic BP Location Tested BP Systolic BP Type Fetus Heart Rate Present Fetus Movement Comments Flowsheet Date 10/23/2021 Orta Score Blood Edema Fundus Height Fundus Units Glucose Ketones Leukocytes Nitrite Labor Signs Protein Cervic Dilation Cervic Effacement Cervic Station Type Weight in lbs Pre/Post Dialysis Refused BP Diastolic BP Location Tested BP Systolic BP Type Fetus Heart Rate Present Fetus Movement Comments Flowsheet Date 10/23/2021 Orta Score Blood Edema Fundus Height Fundus Units Glucose Ketones Leukocytes Nitrite Labor Signs Protein Cervic Dilation Cervic Effacement Cervic Station neg trace 39 none trace 0cm 40% -3 Type Weight in lbs Pre/Post Dialysis Refused Weight 257.338172613434 BP Diastolic BP Location Tested BP Systolic BP Type 89 142 78 140 Fetus Heart Rate Present A 140 Fetus Movement A Yes Comments Doing well. Abscess better, finishing antibiotics. US today 64%. Gbs neg. BP mildly elevated today. Denies PÉREZ/BV/EP. PIH labs with PC ratio today and BP check Saturday. Precautions given. Aware she will be delivered if PreE. Flowsheet Date 10/27/2021 Orta Score Blood Edema Fundus Height Fundus Units Glucose Ketones Leukocytes Nitrite Labor Signs Protein Cervic Dilation Cervic Effacement Cervic Station Type Weight in lbs Pre/Post Dialysis Refused BP Diastolic BP Location Tested BP Systolic BP Type 77 118 Fetus Heart Rate Present Fetus Movement Comments Flowsheet Date 10/30/2021 Orta Score Blood Edema Fundus Height Fundus Units Glucose Ketones Leukocytes Nitrite Labor Signs Protein Cervic Dilation Cervic Effacement Cervic Station Type Weight in lbs Pre/Post Dialysis Refused BP Diastolic BP Location Tested BP Systolic BP Type Fetus Heart Rate Present Fetus Movement Comments Flowsheet Date 10/30/2021 Orta Score Blood Edema Fundus Height Fundus Units Glucose Ketones Leukocytes Nitrite Labor Signs Protein Cervic Dilation Cervic Effacement Cervic Station Type Weight in lbs Pre/Post Dialysis Refused Weight 258.529690829388 BP Diastolic BP Location Tested BP Systolic BP Type 81 129 Fetus Heart Rate Present Fetus Movement Comments Flowsheet Date 10/30/2021 Orta Score Blood Edema Fundus Height Fundus Units Glucose Ketones Leukocytes Nitrite Labor Signs Protein Cervic Dilation Cervic Effacement Cervic Station neg trace none trace Type Weight in lbs Pre/Post Dialysis Refused Weight 258.492208315854 BP Diastolic BP Location Tested BP Systolic BP Type 81 129 Fetus Heart Rate Present A 155 Fetus Movement A Yes Comments Doing well. Great FM. Bpp 8/ 10 today, off for mvt, but having lots now. Will check cervix next week to schedule IOL around ISHAN if undelivered. Precautions given. Flowsheet Date 11/06/2021 Orta Score Blood Edema Fundus Height Fundus Units Glucose Ketones Leukocytes Nitrite Labor Signs Protein Cervic Dilation Cervic Effacement Cervic Station Type Weight in lbs Pre/Post Dialysis Refused Weight 257.734281836587 BP Diastolic BP Location Tested BP Systolic BP Type 85 145 Fetus Heart Rate Present Fetus Movement Comments Flowsheet Date 11/06/2021 Orta Score Blood Edema Fundus Height Fundus Units Glucose Ketones Leukocytes Nitrite Labor Signs Protein Cervic Dilation Cervic Effacement Cervic Station Type Weight in lbs Pre/Post Dialysis Refused BP Diastolic BP Location Tested BP Systolic BP Type Fetus Heart Rate Present Fetus Movement Comments Flowsheet Date 11/06/2021 Orta Score Blood Edema Fundus Height Fundus Units Glucose Ketones Leukocytes Nitrite Labor Signs Protein Cervic Dilation Cervic Effacement Cervic Station neg trace none trace 0cm Type Weight in lbs Pre/Post Dialysis Refused Weight 257.407216240258 BP Diastolic BP Location Tested BP Systolic BP Type 85 145 90 142 Fetus Heart Rate Present A 140 Fetus Movement A Yes Comments Doing well. Denies PÉREZ/BV/EP. BPP 10/10. Cervix closed but soft. Will send over for IOL for PIH. Discussed iOL process. GBS neg. Menstrual History Last Menstrual Date Menses Monthly On Bcp Conception Prior Menses Frequency Hcg Plus Date Menarche Onset Age 0502/02/2021 Genetic Screening And Infection History Question Response Note Mental Retardation/Autism false Patient's Age Will Be 35 Years Or Older At Estim ated Date of Delivery true Thalassemia (Nigerian, Zambian, Mediterranean, Or Background): MCV < 80 false Neural Tube Defect (Meningomyelocele, Spina Bifi da, Or Anencephaly) false Congenital Heart Defect false Down Syndrome false Jacob-Sachs (eg, [place], [place], [place]occan-[place]) f alse Sergey Disease false Sickle Cell Disease Or Trait () false Hemophilia Or Other Blood Disorders false Muscular Dystrophy false Cystic Fibrosis false Eddie's Chorea false Intellectual Disability/Autism false If Yes, Was Person Tested For Fragile X? false Other Inherited Genetic Or Chromosomal Disorder false Maternal Metabolic Disorder (eg, Type 1 Diabetes , PKU) false Patient Or Baby's Father Had A Child With Defects Not Listed Above false Recurrent Loss, Or A Stillbirth false Medications (including Suppl ements, Vitamins, Herbs, OTC Drugs), Illicit/Recreational Drugs, Alcohol true If Yes, Agent(s) And Strength/Dosage false Any Other Genetic History false Live With Someone With TB Or Exposed To TB false Patient Or Partner Has History Of Genital Herpes false Rash Or Viral Illness Since Last Menstrual Perio d false History Of STD, Gonorrhea, Chlamydia, HPV, Syphi lis false Other Infection History false History of HIV false History of Hepatitis false Prior GBS-infected child false Hemoglobinopathy Or Carrier false Other Structural Defect false Recent Travel History Outside of Country false Delivery Information Delivery Date Delivery Type Labor Anesthesia Weeks Gestation Incision Type Labor Labor Length Hrs Delivered By Post Complications Tubal Sterilization Discharge Date Comments 2 Induce d [facility] 39.6 Low Transvers e false Lucila Myers MD Maternal Obesity, anemia, ghtn & failure to induction Discharge Information Feeding Method Contraceptive Method Maternal HG B and HCT Levels
== END 2024-10-26 16:29 | disposition home or self-care (01) ==
LOC: CHSIMG 16:32
PROVIDERS: PCP Family Medicine; Visit Provider Family Medicine
DX: M79.672 Pain in left foot (principal); M20.12 Hallux valgus (acquired), left foot; M19.072 Primary osteoarthritis, left ankle and foot
CPT/HCPCS: 73630